=== PATIENT | male | born 1940 | race Caucasian/White ===

== ENCOUNTER 2016-06-07 17:23 | Inpatient (IN) | payer MEDICARE ==
[~2016-06-07] VITALS: Ht 177.8 cm; Wt 89.9 kg
[2016-06-07] MEDS ORDERED: ALBUTEROL 0.083% NEB SOLUTION 2.5 MG/3 ML VIAL INH ONE (18:05)
[2016-06-07] MEDS ORDERED: SODIUM CHLORIDE FLUSH 3 ML SYR IV ONE (18:15)
--- NOTE | 2016-06-07 18:18 | NUR ---
Pt placed in trendelenburg position for BP at this time.
[2016-06-07] MEDS: SODIUM CHLORIDE FLUSH 10 ML SYR IV PRN ×2 (18:24→23:22)
--- NOTE | 2016-06-07 18:24 | NUR ---
pt states that iv site is painfull, checked site and it is okay, turned rate down to 700cc/hr. states feels better now.
--- NOTE | 2016-06-07 18:25 | NUR ---
upon arrival pts sa02 at 77, placed him in sitting position, changed probe to different fingers, pt had a good wave form at set sa02 at 83%. oxi mask placed on pt at 8 L
--- NOTE | 2016-06-07 18:27 | NUR ---
attempted urine sample without success
[2016-06-07 18:32] LABS: MEAN PLATELET VOLUME 11.9 FL (6.0-9.5); PLATELET COUNT 164 10^3uL (150-450); WHITE BLOOD COUNT 23.42 10^3uL (4.0-11.0)
[2016-06-07 18:36] LABS: ALBUMIN 3.9 g/dL (3.4-5.0); ANION GAP 19.1 MEQ/L (3-15); TOTAL PROTEIN 6.7 g/dL (6.4-8.5)
[2016-06-07 18:43] LABS: MEAN CORPUSCULAR HEMOGLOBIN 33.6 PG (26.0-34.0); MEAN CORPUSCULAR VOLUME 99 FL (80-100)
[2016-06-07 18:44] LABS: BAND NEUTROPHILS % 17 % (0-6); LYMPHOCYTES # 1.2 #; MONOCYTES # 1.8 #; MONOCYTES % 8 % (3-11); SEGMENTED NEUTROPHILS % 70 % (51-67); TOTAL CELLS COUNTED 100
[2016-06-07 18:45] LABS: EOSINOPHILS % 0 % (0-4); RBC MORPH NORMAL (NORMAL)
--- NOTE | 2016-06-07 19:35 | NUR ---
Dr. Rojas put pt's head up a little from being flat, and 02 turned down to 5 liters per oxymask
[2016-06-07] MEDS ORDERED: PIPERACILLIN/TAZOBACTAM 4.5 GM in SODIUM CHLORIDE 100 ML IV ONE (20:15)
--- NOTE | 2016-06-07 21:35 | NUR ---
Patient arrives to the floor via cart accompanied by Mónica TREVIZO, supervisor malt house, admitted to room 342 and transferred self. Patient is happy pleasant, talkative. Respirations labored SOB with activity, O2 @ 2 L/nc, titrated to 3 L/nc d/t sats high 80's to 90%. Coughing up dark red to rust colored thick mucoid sputum. Voids in urinal, specimen to lab.
[2016-06-07 21:46] VITALS: BP 108/49
[2016-06-07 21:55] VITALS: BP 108/49
--- NOTE | 2016-06-07 22:35 | NUR ---
Dr. Sunshine in to see patient. Specimen cup provided for sputum. Patient has wallet and phone at bedside. Refuses offer of safe for money. Full set of dentures in mouth, does not wish to remove at this time.
[2016-06-07 22:39] LABS: BILIRUBIN,URINE Negative (Negative); GLUCOSE, URINE (UA) Negative (Negative); LEUKOCYTE ESTERASE ,URINE Negative (Negative); PH,URINE 5.5 (5.0 - 8.0); UROBILINOGEN,URINE 0.2 mg/dL (0.2-1.0)
[2016-06-07 22:42] LABS: CLARITY,URINE Slightly Cloudy; COLOR,URINE Dark Yellow
[2016-06-07] MEDS ORDERED: ACETAMINOPHEN 325 MG TAB (TYLENOL) PO PRN (22:45)
[2016-06-07] MEDS ORDERED: ONDANSETRON 4 MG (ZOFRAN) ORAL DISSOLVE TAB PO PRN (22:45)
[2016-06-07] MEDS ORDERED: CALCIUM CARBONATE CHEWABLE 300 MG (TUMS) TABLET PO PRN (22:45)
[2016-06-07 22:49] LABS: RBC,URINE None Seen /HPF; URINE CENTRIFUGED VOLUME 12 mL
[2016-06-07] MEDS ORDERED: VANCOMYCIN PHARMACY PROTOCOL IV SCH (22:55)
[2016-06-07] MEDS ORDERED: VANCOMYCIN 1,000 MG in SODIUM CHLORIDE 250 ML IV ONE (22:55)
[2016-06-07] MEDS ORDERED: HEPARIN DRIP 25000 UNIT/250 ML 250 ML IV SCH (22:55)
[2016-06-07] MEDS ORDERED: HYDROcodone/APAP 5 MG/325 MG (NORCO) TAB PO PRN (23:00)
[2016-06-07] MEDS ORDERED: ALBUTEROL 0.083% NEB SOLUTION 2.5 MG/3 ML VIAL INH PRN (23:00)
--- NOTE | 2016-06-07 23:00 | NUR ---
New orders received. Heparin drip ordered. Verified orders with Mónica Loja RN, house mother. No loading dose per Dr. Sunshine. Follow protocol. PTT ordered per protocol, infusion begun at 1250 units/hr per protocol and order.
[2016-06-07 23:01] VITALS: BP 85/46
[2016-06-07] MEDS ORDERED: VANCOMYCIN 1000 MG VIAL ONE (23:06)
[2016-06-07] MEDS ORDERED: SODIUM CHLORIDE 250 ML ONE (23:07)
[2016-06-08] VITALS: BP 94/51
--- NOTE | 2016-06-08 00:30 | NUR ---
PTT resulted at [address] Sunshine notified and advised to proceed with Heparin protocol. Followed protocol for bolus with 70 units/kg and increased rate by 4 units/kg. Dose verified with second ICU nurse Bisi TREVIZO
[2016-06-08] MEDS ORDERED: PIPERACILLIN/TAZOBACTAM 3.375 GM (ZOSYN) VIAL IV ONE (05:12)
[2016-06-08] MEDS ORDERED: SODIUM CHLORIDE 100 ML ONE (05:12)
[2016-06-08] MEDS: PIPERACILLIN/TAZOBACTAM 3.375 GM in SODIUM CHLORIDE 100 ML IV SCH ×3 (05:40→22:57)
[2016-06-08] MEDS: PANTOPRAZOLE 40 MG (PROTONIX) TAB PO SCH (06:07)
[2016-06-08 06:42] LABS: BASOPHILS % (AUTO) 0 % (0-2); EOSINOPHILS # (AUTO) 0.1 10^3uL; EOSINOPHILS % (AUTO) 0 % (0-4); LYMPHOCYTES # (AUTO) 1.2 X10^3; MEAN PLATELET VOLUME 11.8 FL (6.0-9.5); MONOCYTES # (AUTO) 1.3 X10^3; MONOCYTES % (AUTO) 10 % (3-11); NEUTROPHILS # (AUTO) 10.8 X10^3; NEUTROPHILS % (AUTO) 80 % (51-67); PLATELET COUNT 135 10^3uL (150-450)
[2016-06-08 06:58] LABS: MEAN CORPUSCULAR HEMOGLOBIN 32.9 PG (26.0-34.0); MEAN CORPUSCULAR VOLUME 100 FL (80-100)
[2016-06-08 07:03] LABS: ALBUMIN 3.1 g/dL (3.4-5.0); ANION GAP 12.8 MEQ/L (3-15); PHOSPHORUS 3.4 mg/dL (2.4-4.9)
--- NOTE | 2016-06-08 07:05 | NUR ---
Spouse stopped in to see patient and visited with nurses. Reports patient has had c/o "hurting everywhere" and his body burning up at night for the past 2-3 weeks prior to admission.
--- NOTE | 2016-06-08 07:15 | NUR ---
supports patient's statement that he has had "internal shingles" for the past 10 months.
[2016-06-08 08:00] VITALS: BP 101/58
[2016-06-08] MEDS: PREGABALIN 75 MG PO SCH ×2 (08:12→20:51)
[2016-06-08] MEDS: FLUTICASONE/SALMETEROL HFA 230/21 MCG (ADVAIR) COMMON CANNISTER INH SCH ×2 (08:12→20:03)
--- NOTE | 2016-06-08 08:30 | NUR ---
Pt. pleasant and alert this am. Pt. denies pain, dyspnea and nausea. Heparin continues to infuse at 15ml/hr, awaiting PTT results that were drawn at 0815. Pt. eating breakfast independently. Denies needs at this time.
--- NOTE | 2016-06-08 08:58 | NUR ---
NUTRITION ASSESSMENT Level 1 Patient: Phillip Ashraf Age/Sex: 75/M Date Screened: 06-08-16 Weight: 204.6#/93 kg Height: 70 inches Primary Diagnosis: sepsis Diet Order: regular Relevant labs: glucose 98 Food allergies: N Nutrition Assessment Criteria Age over 80: N Body Mass Index (BMI) under 19: N Admission Screening Indicates Risk? N Moderate/High Risk Diagnosis: 3 points TPN or PPN: N NPO or clear liquid diet: N Serum Glucose <70 or >180: N Hgb A1c >6.7: N/A Total: 3 points Risk Screen: __ Patient at low nutritional risk based on available data; reevaluate in 5-7 days _X_ Patient at moderate nutritional risk based on available data; reevaluate in 3-5 days __ Patient at high nutritional risk; complete Nutrition Assessment within 48 hours of admission. Comments: Weight has been stable (203# Feb. 2015 at last admission), no GI concerns, stated good appetite on admission. Will reassess as documented above.
--- NOTE | 2016-06-08 09:00 | NUR ---
Heparin drip stopped for PTT of 159.1. Dr. Sommer aware of PTT results.
--- NOTE | 2016-06-08 09:20 | NUR ---
Orders noted for Heparin drip DC and to start Lovenox.
[2016-06-08] MEDS: VANCOMYCIN COMPOUNDED BY PHARMACY IV SCH ×2 (10:00→20:53)
[2016-06-08] MEDS: VANCOMYCIN 750 MG in NORMAL SALINE 150 ML IV SCH ×2 (10:18→20:52)
[2016-06-08] MEDS: ENOXAPARIN 100 MG/1 ML (LOVENOX) SYR SC SCH ×2 (10:20→20:51)
--- NOTE | 2016-06-08 10:34 | NUR ---
Pt. refusing a bath or shower at this time. States he wants to wait until his brings him clean underwear.
--- NOTE | 2016-06-08 10:49 | NUR ---
Pt. taken to nuclear medicine via WC on 3L O2/NC for VQ scan.
--- NOTE | 2016-06-08 11:49 | NUR ---
Pt. back from VQ scan.
--- NOTE | 2016-06-08 11:55 | NUR ---
Pt. reconnected to monitor, SpO2 83% initially. Pt. was transported on 3L/NC. However, pt. quickly increased to 94% once in bed on those 3L. Explained to pt. that to go home he has to be off oxygen, assuming VQ scan is unremarkable. O2 decreased to 2L/NC at this time.
[2016-06-08 12:00] VITALS: BP 113/55
--- NOTE | 2016-06-08 12:36 | NUR ---
MULTIDISCIPLINARY MTG/DR LOPEZ: Pt. is being treated for a PE. Pt. will have a VQ scan today. Pt remains on oxygen but has no complaints at this time. Pt. may move to med/surg today and possibly discharge tomorrow. No discharge needs identified at this time.
[2016-06-08 17:00] VITALS: BP 116/60
--- NOTE | 2016-06-08 18:02 | NUR ---
MED REC COMPLETE--current med list obtained from patient interview.
--- NOTE | 2016-06-08 18:48 | NUR ---
Kirk rests most of the afternoon without complaint and under the covers with eyes closed. respirations even and unlabored, skin is clean and dry. Sp02 above 92 on 3LNC. VSS and WNL. at the bedside. The patient is able to make his needs known.
--- NOTE | 2016-06-08 19:10 | NUR ---
Report received, care assumed. Pt resting in bed. at bedside. No needs at this time.
[2016-06-08 20:00] VITALS: BP 128/72
[2016-06-08] MEDS ORDERED: clonazePAM 0.5 MG (KlonoPIN) TAB PO SCH (21:00)
[2016-06-08 22:00] VITALS: BP 121/59
--- NOTE | 2016-06-08 22:30 | NUR ---
Pt appears to be sleeping. Eyes closed, respirations even et unlabored. No signs discomfort. O2 sat 93% on 3L per NC. No needs at this time. Call light in reach.
[2016-06-09] VITALS (9 sets, daily range): BP systolic 111–167; BP diastolic 60–98
--- NOTE | 2016-06-09 01:00 | NUR ---
Pt has been resting well. No c/o discomfort or SOA. No needs. Call light in reach.
--- NOTE | 2016-06-09 04:00 | NUR ---
Continues to sleep, no signs discomfort or SOA. O2 Sat 96% on 3L per NC. Decreased O2 to 2L per NC, O2 sat 95%. Will continue to monitor. No needs now.
[2016-06-09] MEDS: PIPERACILLIN/TAZOBACTAM 3.375 GM in SODIUM CHLORIDE 100 ML IV SCH ×3 (05:43→22:15)
[2016-06-09] MEDS: PANTOPRAZOLE 40 MG (PROTONIX) TAB PO SCH (06:01)
[2016-06-09 06:18] LABS: BASOPHILS % (AUTO) 0 % (0-2); EOSINOPHILS # (AUTO) 0.2 10^3uL; EOSINOPHILS % (AUTO) 3 % (0-4); LYMPHOCYTES # (AUTO) 0.9 X10^3; MEAN CORPUSCULAR HGB CONC 33.3 g/dL (31.0-37.0); MEAN PLATELET VOLUME 11.9 FL (6.0-9.5); MONOCYTES # (AUTO) 0.9 X10^3; MONOCYTES % (AUTO) 11 % (3-11); NEUTROPHILS # (AUTO) 5.5 X10^3; NEUTROPHILS % (AUTO) 73 % (51-67); PLATELET COUNT 135 10^3uL (150-450); WHITE BLOOD COUNT 7.54 10^3uL (4.0-11.0)
[2016-06-09 06:24] LABS: MEAN CORPUSCULAR HEMOGLOBIN 33.2 PG (26.0-34.0); MEAN CORPUSCULAR VOLUME 100 FL (80-100)
[2016-06-09 06:38] LABS: ALBUMIN 3.1 g/dL (3.4-5.0); ANION GAP 11.4 MEQ/L (3-15); MAGNESIUM* 1.8 mg/dL (1.6-2.3); PHOSPHORUS 3.2 mg/dL (2.4-4.9)
[2016-06-09] MEDS ORDERED: ONDANSETRON 4 MG (ZOFRAN) ORAL DISSOLVE TAB PO PRN (08:30)
[2016-06-09] MEDS ORDERED: SODIUM CHLORIDE FLUSH 10 ML SYR IV PRN (08:30)
[2016-06-09] MEDS: ENOXAPARIN 40 MG/0.4 ML (LOVENOX) SYR SC SCH (08:41)
[2016-06-09] MEDS: PREGABALIN 75 MG PO SCH ×2 (08:41→20:31)
[2016-06-09] MEDS ORDERED: ALBUTEROL 0.083% NEB SOLUTION 2.5 MG/3 ML VIAL INH PRN (08:52)
[2016-06-09] MEDS ORDERED: VANCOMYCIN IV SCH ×2 (09:00)
[2016-06-09] MEDS ORDERED: NON-FORMULARY MEDICATION 1 EA EA (Fluticasone/Salmeterol (Advair 250-50 Diskus) 1 PUFF) IH SCH (09:00)
[2016-06-09] MEDS ORDERED: ENOXAPARIN 40 MG/0.4 ML (LOVENOX) SYR SC SCH (09:00)
[2016-06-09] MEDS: FLUTICASONE/SALMETEROL HFA 115/21 MCG (ADVAIR) COMMON CANNISTER INH SCH ×2 (09:00→20:50)
[2016-06-09] MEDS: VANCOMYCIN COMPOUNDED BY PHARMACY IV SCH ×2 (09:00→20:31)
[2016-06-09] MEDS ORDERED: FLUTICASONE/SALMETEROL HFA 230/21 MCG (ADVAIR) COMMON CANNISTER INH SCH (09:00)
[2016-06-09] MEDS ORDERED: VANCOMYCIN PHARMACY PROTOCOL IV SCH ×3 (09:00→22:55)
[2016-06-09] MEDS ORDERED: NORMAL SALINE IV SCH ×2 (09:00)
[2016-06-09] MEDS ORDERED: NON-FORMULARY MEDICATION 1 EA EA (Loratadine 10 MG) PO SCH (09:00)
[2016-06-09] MEDS: LORATADINE (CLARITIN) 10 MG TAB PO SCH (09:22)
[2016-06-09] MEDS: ALLOPURINOL 300 MG (ZYLOPRIM) TAB PO SCH (09:22)
[2016-06-09] MEDS ORDERED: HYDROcodone/APAP 5 MG/325 MG (NORCO) TAB PO PRN ×2 (09:45→10:00)
[2016-06-09] MEDS: ASPIRIN BUFFERED PO SCH (10:33)
--- NOTE | 2016-06-09 11:04 | NUR ---
Pt. alert and oriented this morning, pleasant. He denies pain, but when asked about the discomfort in his feet, he states he always has pain in his feet. He rates the pain in his feet 9/10, states that is his normal and is tolerable. He normally takes ASA in the morning and Tylenol in the evening for this pain. Pt. continues to require O2 to maintain SpO2 above 90%. Initially this am he was on 3L/NC. SpO2 was 95-96% at 0745 and O2 was titrated down to 2L. Pt. had difficulty maintaining SpO2 on 2L, SpO2 maintained at 86-89%. O2 increased back to 3L/NC. Order received from Dr. Sommer at 0930 to continue pts. home [place] and ASA. Encouraged pt. to use IS every hour while awake. Pts. here at this time, she is aware of plan of care as well. Pt. to be transferred to floor today.
--- NOTE | 2016-06-09 11:34 | NUR ---
Report given to Temitope TREVIZO, to assume care of pt. upon transfer to [facility].
--- NOTE | 2016-06-09 11:55 | NUR ---
Pt. transferred to [facility] at this time via WC accompanied by son and RN. Belongings sent with pt.
--- NOTE | 2016-06-09 11:55 | NUR ---
Pt transferred to [facility] from ICU at this time. States he feels "fantastic". Skin warm, dry, intact. Resprs nonlabored, even on RA. States "I just want to go home!". 3L O2 per NC. Son at bedside.
--- NOTE | 2016-06-09 13:42 | NUR ---
Vancomycin Dosing: Pharmacy Managed S: Sepsis: Empiric Antibiotic therapy with Pip/Tazo and Vancomycin. Cultures pending. O: 75y/o M, wt = 95.4 kg, SCr= 1.26 CrCl= 47 ml/min A/P: Trough returned at 10.8 with VAnco 750mg q12h. Will increase to 1250mg q12h with a predicted trough of 18.05.
[2016-06-09] MEDS ORDERED: CALCIUM CARBONATE CHEWABLE 300 MG (TUMS) TABLET PO PRN (14:45)
--- NOTE | 2016-06-09 16:26 | NUR ---
Upon finishing in the shower, this nurse was called into shower as pt's IV was profusely bleeding. Bleeding controlled, cleaned up, IV DC'd with catheter tip intact, pressure held for approx 4 mins. 4x4s and coban applied. Pt denies other needs.
--- NOTE | 2016-06-09 17:42 | NUR ---
Took pt off O2 this afternoon per Dr Sommer to monitor sats on RA as pt was quite eager to go home. Pt ambulated 2 laps with staff on RA. Sats anywhere from 76-93%. Pt returned to room and continued to monitor sats. Pt's sats got as low as 74% at one point, but mainly stayed between 84-93%. 2L NC replaced at this time. Kemal aware, new orders entered. Pt discouraged that he cannot go home. States "I wonder if I just need to get an oxygen tank at home and wear this around at home". Informed pt that may be something he needs to discuss with the doctor. Pt denies needs at this time. Very pleasant, cooperative.
--- NOTE | 2016-06-09 18:30 | NUR ---
O2 sats between 85% and 92%. RT notified. Increased to 3L NC. Will try oxy mask once patient goes to bed. Denies needs.
--- NOTE | 2016-06-09 19:35 | NUR ---
Pt is sitting up in bed watching tv, alert and oriented x 4, Resp are even and nonlabored, LCTAB, request to have Oxymax put on at this time. This RN switched pt to Oxymax at 3LPM. HRRR, BS are active x 4 quadrants. SL is patent, currently infusing Zosyn, no redness, swelling, or s/s of infection noted at this time. Pt continues to pick at tape on IV, thinks it needs more tape to keep it in place. This RN applies new tape to IV, educated pt that he will have to keep his arm straight so he doesn't kink of the IV, as his IV is in his RAC. Pt verbalizes understanding at this time. Denies pain or discomfort at this time. Call light is in reach, will continue to monitor.
[2016-06-09] MEDS: SIMvastatin 20 MG (ZOCOR) TAB PO SCH (20:31)
[2016-06-09] MEDS: VANCOMYCIN 1250 MG in SODIUM CHLORIDE 250 ML IV SCH (20:31)
[2016-06-09] MEDS: clonazePAM 0.5 MG (KlonoPIN) TAB PO SCH (20:31)
[2016-06-09] MEDS: ACETAMINOPHEN 325 MG TAB (TYLENOL) PO PRN (20:33)
[2016-06-10] VITALS (7 sets, daily range): BP systolic 123–159; BP diastolic 58–111
--- NOTE | 2016-06-10 04:39 | NUR ---
Pt has been resting in bed most of shift, did receive Tylenol 650mg PO for discomfort at 2029. Has denied further pain or discomfort during this shift. Call light is in reach, will continue to monitor.
[2016-06-10] MEDS: PIPERACILLIN/TAZOBACTAM 3.375 GM in SODIUM CHLORIDE 100 ML IV SCH ×3 (06:15→22:04)
[2016-06-10] MEDS: PANTOPRAZOLE 40 MG (PROTONIX) TAB PO SCH (06:39)
--- NOTE | 2016-06-10 07:30 | NUR ---
Patient resting in bed upon shift assessment. Alert and oriented X3. Denies pain, SOA, nausea, or other distress. Respirations even and non-labored on 2L of 02 per nc. Continuous pulse ox intact and reflecting oxygen saturation of 93%. Lung sounds diminished throughout. HR RRR. No edema noted to BLE. Updated on plan of care for shift including titrating oxygen and antibiotic therapy. Expresses strong desire to go home. Positive reassurance provided. Call light in reach.
[2016-06-10] MEDS: FLUTICASONE/SALMETEROL HFA 115/21 MCG (ADVAIR) COMMON CANNISTER INH SCH ×2 (07:52→19:17)
[2016-06-10] MEDS: ASPIRIN BUFFERED PO SCH (08:30)
[2016-06-10] MEDS: ALLOPURINOL 300 MG (ZYLOPRIM) TAB PO SCH (08:30)
[2016-06-10] MEDS: LORATADINE (CLARITIN) 10 MG TAB PO SCH (08:30)
[2016-06-10] MEDS: ENOXAPARIN 40 MG/0.4 ML (LOVENOX) SYR SC SCH (08:30)
[2016-06-10] MEDS: PREGABALIN 75 MG PO SCH ×2 (08:30→21:00)
[2016-06-10] MEDS: VANCOMYCIN COMPOUNDED BY PHARMACY IV SCH ×2 (08:31→21:00)
[2016-06-10] MEDS ORDERED: NS FLUSH 3 ML PRN IV (08:40)
[2016-06-10] MEDS: NS FLUSH 3 ML DAILY IV SCH (09:00)
[2016-06-10] MEDS ORDERED: ALBUTEROL 0.083% NEB SOLUTION 2.5 MG/3 ML VIAL INH PRN (09:30)
[2016-06-10] MEDS: VANCOMYCIN 1250 MG in SODIUM CHLORIDE 250 ML IV SCH (09:57)
[2016-06-10] MEDS ORDERED: ALBUTEROL/IPRATROPIUM 3MG-0.5MG/3ML (DUONEB) NEB VIAL INH ONE (10:43)
[2016-06-10] MEDS: ALBUTEROL/IPRATROPIUM 3MG-0.5MG/3ML (DUONEB) NEB VIAL INH SCH ×2 (10:44→19:17)
[2016-06-10] MEDS: ACETAMINOPHEN 325 MG TAB (TYLENOL) PO PRN (16:21)
[2016-06-10] MEDS: clonazePAM 0.5 MG (KlonoPIN) TAB PO SCH (21:00)
[2016-06-10] MEDS: SIMvastatin 20 MG (ZOCOR) TAB PO SCH (21:00)
[2016-06-11] VITALS (8 sets, daily range): BP systolic 117–161; BP diastolic 60–109
--- NOTE | 2016-06-11 05:07 | NUR ---
Pt has been resting in bed most of shift, did receive Tylenol 650mg PO for discomfort at 2054. Has denied further pain or discomfort during this shift. Call light is in reach, will continue to monitor.
[2016-06-11] MEDS: PIPERACILLIN/TAZOBACTAM 3.375 GM in SODIUM CHLORIDE 100 ML IV SCH (06:06)
[2016-06-11] MEDS: PANTOPRAZOLE 40 MG (PROTONIX) TAB PO SCH (07:07)
[2016-06-11] MEDS: FLUTICASONE/SALMETEROL HFA 115/21 MCG (ADVAIR) COMMON CANNISTER INH SCH ×2 (07:46→19:41)
[2016-06-11] MEDS: ALBUTEROL/IPRATROPIUM 3MG-0.5MG/3ML (DUONEB) NEB VIAL INH SCH ×2 (07:47→19:40)
[2016-06-11] MEDS: ASPIRIN BUFFERED PO SCH (09:00)
[2016-06-11] MEDS: PREGABALIN 75 MG PO SCH ×2 (09:00→20:45)
[2016-06-11] MEDS: ALLOPURINOL 300 MG (ZYLOPRIM) TAB PO SCH (09:00)
[2016-06-11] MEDS: NS FLUSH 3 ML DAILY IV SCH (09:00)
[2016-06-11] MEDS: VANCOMYCIN COMPOUNDED BY PHARMACY IV SCH (09:00)
[2016-06-11] MEDS: LORATADINE (CLARITIN) 10 MG TAB PO SCH (09:00)
[2016-06-11] MEDS: ENOXAPARIN 40 MG/0.4 ML (LOVENOX) SYR SC SCH (09:01)
--- NOTE | 2016-06-11 10:44 | NUR ---
Complains of sore right hand from previous IV that infiltrated. Warm washcloth given for discomfort.
[2016-06-11] MEDS: predniSONE 20 MG (DELTASONE) TABLET PO SCH (14:02)
[2016-06-11] MEDS: ACETAMINOPHEN 325 MG TAB (TYLENOL) PO PRN (16:36)
--- NOTE | 2016-06-11 16:38 | NUR ---
Complaining of right foot pain after amb. and request Tylenol. Med given.
--- NOTE | 2016-06-11 19:30 | NUR ---
Pt seen and assessed. Updated on plan of care for shift. Pt requests to take a walk later. Denies pain. Cont on 2L oxygen per nc. No needs at this time.
--- NOTE | 2016-06-11 19:45 | NUR ---
Pt found sitting on the side of his bed, SPO2 92% on 2 l/min NC, HR 118, RR 18 and non labored. 2p Advair 115/21 given via Spacer and Duoneb given via SVN. BS clear before and after Tx. Is is being done on his own.
[2016-06-11] MEDS: SIMvastatin 20 MG (ZOCOR) TAB PO SCH (20:45)
[2016-06-11] MEDS: AMOXICILLIN/CLAVULANATE 875MG-125MG (AUGMENTIN) TABLET PO SCH (20:45)
[2016-06-11] MEDS: clonazePAM 0.5 MG (KlonoPIN) TAB PO SCH (20:45)
[2016-06-12 04:31] VITALS: BP 126/88
[2016-06-12] MEDS: PANTOPRAZOLE 40 MG (PROTONIX) TAB PO SCH (06:06)
--- NOTE | 2016-06-12 06:08 | NUR ---
Pt rests intermittently throughout the night. C/o itching d/t "internal shingles." Denies pain. Cont on 2L oxygen per nc. SL intact. No needs at this time.
--- NOTE | 2016-06-12 07:20 | NUR ---
Patient awake in bed upon shift assessment. Alert and oriented X3. Denies pain, SOA, or other distress. Respirations even and non-labored on 2L of 02 per nc. Lung sounds diminished throughout. HR RRR. No edema noted to BLE. Updated on plan of care for shift. Call light in reach.
[2016-06-12 08:20] VITALS: BP 164/86
[2016-06-12 08:22] VITALS: BP_SYST 108; BP_SYST 151; BP_SYST 164; BP_DIAS 102; BP_DIAS 74; BP_DIAS 86
[2016-06-12] MEDS: FLUTICASONE/SALMETEROL HFA 115/21 MCG (ADVAIR) COMMON CANNISTER INH SCH (08:37)
[2016-06-12] MEDS: ALBUTEROL/IPRATROPIUM 3MG-0.5MG/3ML (DUONEB) NEB VIAL INH SCH (08:37)
[2016-06-12] MEDS: AMOXICILLIN/CLAVULANATE 875MG-125MG (AUGMENTIN) TABLET PO SCH (08:51)
[2016-06-12] MEDS: predniSONE 20 MG (DELTASONE) TABLET PO SCH (08:52)
[2016-06-12] MEDS: ASPIRIN BUFFERED PO SCH (08:52)
[2016-06-12] MEDS: LORATADINE (CLARITIN) 10 MG TAB PO SCH (08:52)
[2016-06-12] MEDS: PREGABALIN 75 MG PO SCH (08:52)
[2016-06-12] MEDS: ENOXAPARIN 40 MG/0.4 ML (LOVENOX) SYR SC SCH (08:52)
[2016-06-12] MEDS: ALLOPURINOL 300 MG (ZYLOPRIM) TAB PO SCH (08:52)
[2016-06-12] MEDS: NS FLUSH 3 ML DAILY IV SCH (08:53)
--- NOTE | 2016-06-12 10:51 | NUR ---
Discharge order received. IV discontinued with catheter intact. No redness or swelling noted at insertion site. Instructions provided with verbal and written understanding expressed. Health Equip here with ordered portable oxygen tank.
--- NOTE | 2016-06-12 11:08 | NUR ---
Patient discharged via wheelchair to private vehicle accompanied by TRIM MACHINE OPERATOR and . 2L of 02 intact per nc. No further needs.
--- NOTE | 2016-06-12 11:18 | NUR ---
Reviewed discharge medications with patient. Provided patient handout information for new medications. No additional questions or concerns. Patient verbalized understanding of medications.
== END 2016-06-12 11:20 | disposition home or self-care (01) | DRG 189 ==
LOC: ED 17:25 → ICU 21:13 → MED/SURG 06-09 12:00
PROVIDERS: ADMIT Family Medicine; ATTEND Family Medicine
DX: J96.01 Acute respiratory failure with hypoxia (principal); J18.9 Pneumonia, unspecified organism; N17.9 Acute kidney failure, unspecified; Z66 Do not resuscitate; J44.0 Chronic obstructive pulmonary disease with (acute) lower respiratory infection; J44.1 Chronic obstructive pulmonary disease with (acute) exacerbation; I95.9 Hypotension, unspecified; E87.5 Hyperkalemia; I10 Essential (primary) hypertension; M10.9 Gout, unspecified; G89.29 Other chronic pain; Z87.891 Personal history of nicotine dependence
CPT/HCPCS: 36415; 71010; 78582; 80053; 80069; 80202; 81003; 81015; 82550; 82553; 82803; 83605; 83735; 83880; 84443; 84484; 85025; 85379; 85610; 85730; 86140; 87040; 87205; 93005; 93010; 94620; 94640; 94760; 94762; 96361; 96365; 99284; 99285

== ENCOUNTER → 2016-06-26 | Outpatient (CLI) | payer MEDICARE | LOC: RAD 08:15 | PROVIDERS: ATTEND Internal Medicine | DX: J18.9 Pneumonia, unspecified organism (principal); I51.7 Cardiomegaly; J44.9 Chronic obstructive pulmonary disease, unspecified | CPT/HCPCS: 71020 ==

== ENCOUNTER 2016-07-15 09:50 | Inpatient (IN) | payer MEDICARE ==
[~2016-07-15] VITALS: Ht 175.3 cm; Wt 96.4 kg
[2016-07-15] VITALS (9 sets, daily range): BP systolic 81–119; BP diastolic 45–71
[2016-07-15] MEDS ORDERED: ONDANSETRON 2 MG/ML (Z0FRAN) 2 ML VIAL IV ONE (10:20)
[2016-07-15] MEDS ORDERED: SODIUM CHLORIDE FLUSH 3 ML SYR IV ONE ×2 (10:20→10:25)
[2016-07-15] MEDS ORDERED: SODIUM CHLORIDE FLUSH 10 ML SYR IV PRN ×2 (10:20→10:25)
[2016-07-15] MEDS ORDERED: NS IV 500 ML 500 ML IV SCH ×4 (10:20→11:30)
[2016-07-15] MEDS ORDERED: ALBUTEROL/IPRATROPIUM 3MG-0.5MG/3ML (DUONEB) NEB VIAL INH ONE (10:30)
[2016-07-15 10:38] LABS: MEAN CORPUSCULAR HGB CONC 34.2 g/dL (31.0-37.0); MEAN CORPUSCULAR VOLUME 96 FL (80-100); PLATELET COUNT 158 10^3uL (150-450); WHITE BLOOD COUNT 15.19 10^3uL (4.0-11.0)
[2016-07-15] MEDS ORDERED: VANCOMYCIN 1,000 MG in SODIUM CHLORIDE 250 ML IV ONE (10:40)
[2016-07-15 10:45] LABS: MEAN CORPUSCULAR HEMOGLOBIN 32.7 PG (26.0-34.0)
[2016-07-15 10:51] LABS: ALBUMIN 3.8 g/dL (3.4-5.0); ANION GAP 14.7 MEQ/L (3-15); CALCULATED IONIZED CALCIUM 4.3 mg/dL (3.8-4.6); TOTAL PROTEIN 6.5 g/dL (6.4-8.5)
[2016-07-15 10:53] LABS: BAND NEUTROPHILS % 17 % (0-6); EOSINOPHILS % 0 % (0-4); LYMPHOCYTES # 0.5 #; MONOCYTES # 0.5 #; MONOCYTES % 3 % (3-11); RBC MORPH NORMAL (NORMAL); SEGMENTED NEUTROPHILS % 76 % (51-67); TOTAL CELLS COUNTED 100
[2016-07-15] MEDS ORDERED: fentaNYL 100 MCG/2 ML VIAL IV ONE (11:05)
[2016-07-15 11:08] LABS: BILIRUBIN,URINE Negative (Negative); CLARITY,URINE Clear; COLOR,URINE Yellow; GLUCOSE, URINE (UA) Negative (Negative); LEUKOCYTE ESTERASE ,URINE Negative (Negative); PH,URINE 5.5 (5.0 - 8.0); UROBILINOGEN,URINE 0.2 mg/dL (0.2-1.0)
[2016-07-15 11:13] LABS: AMORPHOUS SEDIMENT,UR 1+ /HPF; RBC,URINE 0-2 /HPF; URINE CENTRIFUGED VOLUME <10mL Unspun
[2016-07-15] MEDS ORDERED: DOPamine DRIP 250 ML IV PRN (11:20)
[2016-07-15] MEDS ORDERED: ALBUTEROL 0.083% NEB SOLUTION 2.5 MG/3 ML VIAL INH PRN (12:40)
[2016-07-15] MEDS ORDERED: ONDANSETRON 2 MG/ML (Z0FRAN) 2 ML VIAL IV PRN (12:40)
[2016-07-15] MEDS ORDERED: MAG HYDROX/AL HYDROX/SIMETH 200-200-20/5 ML (MAG-AL PLUS) 30 ML UDC PO PRN (12:40)
[2016-07-15] MEDS ORDERED: CALCIUM CARBONATE CHEWABLE 300 MG (TUMS) TABLET PO PRN (12:40)
[2016-07-15] MEDS ORDERED: MAGNESIUM HYDROXIDE 80MG/ML (MILK OF MAGNESIA) 30 ML UDC PO PRN (12:40)
[2016-07-15] MEDS ORDERED: ONDANSETRON 4 MG (ZOFRAN) ORAL DISSOLVE TAB PO PRN (12:40)
[2016-07-15] MEDS ORDERED: VANCOMYCIN PHARMACY PROTOCOL IV SCH ×2 (12:40)
[2016-07-15] MEDS ORDERED: POLYETHYLENE GLYCOL 17 GM (MIRALAX) PACKET PO PRN (12:40)
[2016-07-15] MEDS ORDERED: LEVOFLOXACIN 750 MG/150 ML IV 150 ML IV SCH (12:40)
[2016-07-15] MEDS ORDERED: DOCUSATE SODIUM 100 MG (COLACE) CAP PO PRN (12:40)
[2016-07-15] MEDS ORDERED: PROMETHAZINE HCL INJ 12.5 MG in SODIUM CHLORIDE 25 ML IV PRN (12:40)
[2016-07-15] MEDS: ACETAMINOPHEN 325 MG TAB (TYLENOL) PO PRN (13:28)
[2016-07-15] MEDS: PIPERACILLIN/TAZOBACTAM 3.375 GM in SODIUM CHLORIDE 100 ML IV SCH ×2 (14:38→21:04)
[2016-07-15] MEDS ORDERED: LORATADINE (CLARITIN) 10 MG TAB PO PRN (15:10)
[2016-07-15] MEDS: ALBUTEROL/IPRATROPIUM 3MG-0.5MG/3ML (DUONEB) NEB VIAL INH SCH ×2 (16:57→22:54)
[2016-07-15] MEDS: HYDROcodone/APAP 5 MG/325 MG (NORCO) TAB PO PRN (17:58)
[2016-07-15] MEDS ORDERED: BUDESONIDE NEBS 0.5 MG/2ML (PULMICORT) AMP INH SCH (21:00)
[2016-07-15] MEDS: PREGABALIN 75 MG PO SCH (21:04)
[2016-07-15] MEDS: guaiFENesin ER 600 MG (MUCINEX) TAB PO SCH (21:04)
[2016-07-15] MEDS: methylPREDNISolone 125 MG (Solu-MEDROL) VIAL IV SCH (21:04)
[2016-07-15] MEDS: FLUTICASONE/SALMETEROL HFA 115/21 MCG (ADVAIR) COMMON CANNISTER INH SCH (22:54)
[2016-07-16] VITALS (7 sets, daily range): BP systolic 94–145; BP diastolic 58–89
[2016-07-16] MEDS: NS FLUSH 10 ML PRN IV ×2 (01:56→08:23)
[2016-07-16] MEDS: HYDROcodone/APAP 5 MG/325 MG (NORCO) TAB PO PRN ×2 (02:01→08:23)
[2016-07-16] MEDS: ALBUTEROL/IPRATROPIUM 3MG-0.5MG/3ML (DUONEB) NEB VIAL INH SCH ×4 (05:41→22:24)
[2016-07-16] MEDS: FLUTICASONE/SALMETEROL HFA 115/21 MCG (ADVAIR) COMMON CANNISTER INH SCH ×2 (05:42→22:24)
[2016-07-16 06:02] LABS: MEAN CORPUSCULAR HGB CONC 33.2 g/dL (31.0-37.0); MEAN PLATELET VOLUME 11.2 FL (6.0-9.5); PLATELET COUNT 93 10^3uL (150-450); WHITE BLOOD COUNT 17.32 10^3uL (4.0-11.0)
[2016-07-16 06:06] LABS: MEAN CORPUSCULAR HEMOGLOBIN 32.7 PG (26.0-34.0); MEAN CORPUSCULAR VOLUME 99 FL (80-100)
[2016-07-16] MEDS: PIPERACILLIN/TAZOBACTAM 3.375 GM in SODIUM CHLORIDE 100 ML IV SCH ×3 (06:11→22:36)
[2016-07-16] MEDS: PANTOPRAZOLE 40 MG (PROTONIX) TAB PO SCH (06:11)
[2016-07-16] MEDS: NS FLUSH 3 ML PRN IV ×2 (06:14→13:34)
[2016-07-16 06:31] LABS: EOSINOPHILS % 0 % (0-4); LYMPHOCYTES # 0.4 #; MONOCYTES # 0.2 #; MONOCYTES % 1 % (3-11); SEGMENTED NEUTROPHILS % 79 % (51-67)
[2016-07-16 06:32] LABS: BAND NEUTROPHILS % 17 % (0-6); RBC MORPH NORMAL (NORMAL); TOTAL CELLS COUNTED 100
[2016-07-16 06:49] LABS: ALBUMIN 3.1 g/dL (3.4-5.0); ANION GAP 14.3 MEQ/L (3-15); PHOSPHORUS 3.7 mg/dL (2.4-4.9)
[2016-07-16] MEDS: methylPREDNISolone 125 MG (Solu-MEDROL) VIAL IV SCH ×2 (08:22→20:14)
[2016-07-16] MEDS: ENOXAPARIN 30 MG/0.3 ML (LOVENOX) SYR SC SCH (08:22)
[2016-07-16] MEDS: guaiFENesin ER 600 MG (MUCINEX) TAB PO SCH ×2 (08:23→20:15)
[2016-07-16] MEDS: ACIDOPHILUS/LACTOBACILLUS SPOROGENES 1 TABLET PO SCH (08:23)
[2016-07-16] MEDS: NS FLUSH 3 ML DAILY IV SCH (08:24)
[2016-07-16] MEDS: PREGABALIN 75 MG PO SCH ×2 (08:24→20:15)
[2016-07-16] MEDS: ALLOPURINOL 300 MG (ZYLOPRIM) TAB PO SCH (08:24)
[2016-07-16] MEDS: hydrOXYzine 25 MG (ATARAX) TABLET PO PRN ×2 (08:45→20:16)
[2016-07-16] MEDS: ACETAMINOPHEN 325 MG TAB (TYLENOL) PO PRN (10:55)
[2016-07-16] MEDS ORDERED: VANCOMYCIN 1,000 MG in SODIUM CHLORIDE 250 ML IV SCH (11:00)
[2016-07-16] MEDS ORDERED: VANCOMYCIN COMPOUNDED BY PHARMACY IV SCH (11:00)
[2016-07-16] MEDS ORDERED: VANCOMYCIN 1500 MG in NS IV 300 ML IV SCH ×3 (11:00)
[2016-07-17] VITALS (7 sets, daily range): BP systolic 135–203; BP diastolic 75–107
[2016-07-17] MEDS: ALBUTEROL/IPRATROPIUM 3MG-0.5MG/3ML (DUONEB) NEB VIAL INH SCH ×4 (05:52→22:57)
[2016-07-17] MEDS: PIPERACILLIN/TAZOBACTAM 3.375 GM in SODIUM CHLORIDE 100 ML IV SCH ×3 (06:19→22:27)
[2016-07-17] MEDS: PANTOPRAZOLE 40 MG (PROTONIX) TAB PO SCH (06:20)
[2016-07-17 06:23] LABS: MEAN CORPUSCULAR HGB CONC 34.4 g/dL (31.0-37.0); MEAN CORPUSCULAR VOLUME 97 FL (80-100); PLATELET COUNT 100 10^3uL (150-450); WHITE BLOOD COUNT 14.62 10^3uL (4.0-11.0)
[2016-07-17] MEDS: HYDROcodone/APAP 5 MG/325 MG (NORCO) TAB PO PRN ×3 (06:39→17:50)
[2016-07-17 06:46] LABS: MEAN CORPUSCULAR HEMOGLOBIN 33.3 PG (26.0-34.0)
[2016-07-17 06:47] LABS: LYMPHOCYTES # 0.3 #; MONOCYTES # 0.4 #; MONOCYTES % 3 % (3-11)
[2016-07-17 06:48] LABS: ALBUMIN 3.2 g/dL (3.4-5.0); ANION GAP 13.9 MEQ/L (3-15); EOSINOPHILS % 0 % (0-4); MAGNESIUM* 1.8 mg/dL (1.6-2.3); PHOSPHORUS 3.2 mg/dL (2.4-4.9)
[2016-07-17 06:49] LABS: BAND NEUTROPHILS % 5 % (0-6); SEGMENTED NEUTROPHILS % 90 % (51-67); TOTAL CELLS COUNTED 100
[2016-07-17 07:11] LABS: RBC MORPH NORMAL (NORMAL)
[2016-07-17] MEDS: ACIDOPHILUS/LACTOBACILLUS SPOROGENES 1 TABLET PO SCH (08:15)
[2016-07-17] MEDS: PREGABALIN 75 MG PO SCH ×2 (08:15→20:23)
[2016-07-17] MEDS: guaiFENesin ER 600 MG (MUCINEX) TAB PO SCH ×2 (08:15→20:22)
[2016-07-17] MEDS: ENOXAPARIN 30 MG/0.3 ML (LOVENOX) SYR SC SCH (08:16)
[2016-07-17] MEDS: NS FLUSH 3 ML DAILY IV SCH (08:16)
[2016-07-17] MEDS: methylPREDNISolone 125 MG (Solu-MEDROL) VIAL IV SCH (08:17)
[2016-07-17] MEDS: ALLOPURINOL 300 MG (ZYLOPRIM) TAB PO SCH (08:22)
[2016-07-17] MEDS ORDERED: PROMETHAZINE HCL INJ 12.5 MG in SODIUM CHLORIDE 25 ML IV PRN (10:06)
[2016-07-17] MEDS ORDERED: ACETAMINOPHEN 325 MG TAB (TYLENOL) PO PRN (10:07)
[2016-07-17] MEDS ORDERED: ALBUTEROL 0.083% NEB SOLUTION 2.5 MG/3 ML VIAL INH PRN (10:07)
[2016-07-17] MEDS ORDERED: DOCUSATE SODIUM 100 MG (COLACE) CAP PO PRN (10:08)
[2016-07-17] MEDS ORDERED: CALCIUM CARBONATE CHEWABLE 300 MG (TUMS) TABLET PO PRN (10:08)
[2016-07-17] MEDS ORDERED: MAGNESIUM HYDROXIDE 80MG/ML (MILK OF MAGNESIA) 30 ML UDC PO PRN (10:09)
[2016-07-17] MEDS ORDERED: LORATADINE (CLARITIN) 10 MG TAB PO PRN (10:09)
[2016-07-17] MEDS ORDERED: ONDANSETRON 4 MG (ZOFRAN) ORAL DISSOLVE TAB PO PRN (10:10)
[2016-07-17] MEDS ORDERED: MAG HYDROX/AL HYDROX/SIMETH 200-200-20/5 ML (MAG-AL PLUS) 30 ML UDC PO PRN (10:10)
[2016-07-17] MEDS ORDERED: POLYETHYLENE GLYCOL 17 GM (MIRALAX) PACKET PO PRN (10:10)
[2016-07-17] MEDS ORDERED: VANCOMYCIN PHARMACY PROTOCOL IV SCH (10:11)
[2016-07-17] MEDS ORDERED: SODIUM CHLORIDE FLUSH 3 ML SYR IV PRN (10:11)
[2016-07-17] MEDS: COMPOUNDED BY PHARMACY IV SCH (10:43)
[2016-07-17] MEDS: VANCOMYCIN 1,500 MG, VANCOMYCIN PHARMACY PROTOCOL 1 EACH in SODIUM CHLORIDE 250 ML, SOD... IV SCH (10:43)
[2016-07-17] MEDS: SODIUM CHLORIDE 100 ML IV PRN ×2 (10:51→15:25)
[2016-07-17] MEDS: FLUTICASONE/SALMETEROL HFA 115/21 MCG (ADVAIR) COMMON CANNISTER INH SCH ×2 (10:57→22:59)
[2016-07-17] MEDS ORDERED: LEVOFLOXACIN 750 MG/150 ML IV 150 ML IV SCH (13:00)
[2016-07-17] MEDS: hydrOXYzine 25 MG (ATARAX) TABLET PO PRN ×2 (16:33→22:35)
[2016-07-17] MEDS: hydrALAZINE 20 MG/ML (APRESOLINE) 1 ML VIAL IV PRN (17:37)
[2016-07-17] MEDS: amLODIPine 2.5MG (NORVASC) TAB PO SCH (17:37)
[2016-07-17] MEDS: meTOproloL SUCCINATE 50 MG (TOPROL XL) TAB PO SCH (17:37)
[2016-07-17] MEDS: SODIUM CHLORIDE FLUSH 10 ML SYR IV PRN ×2 (17:41→22:27)
[2016-07-17] MEDS: MAGNESIUM 1 GM/100 ML IVPB 100 ML IV SCH ×2 (17:46→19:02)
[2016-07-17] MEDS: LORazepam 2 MG/ML (ATIVAN) 1 ML VIAL IV PRN (17:51)
[2016-07-17] MEDS ORDERED: methylPREDNISolone 125 MG (Solu-MEDROL) VIAL IV SCH (21:00)
[2016-07-18 04:00] VITALS: BP 159/88
[2016-07-18] MEDS: ALBUTEROL/IPRATROPIUM 3MG-0.5MG/3ML (DUONEB) NEB VIAL INH SCH ×4 (05:09→22:27)
[2016-07-18] MEDS: PIPERACILLIN/TAZOBACTAM 3.375 GM in SODIUM CHLORIDE 100 ML IV SCH (05:47)
[2016-07-18] MEDS: HYDROcodone/APAP 5 MG/325 MG (NORCO) TAB PO PRN ×3 (05:48→20:26)
[2016-07-18] MEDS: PANTOPRAZOLE 40 MG (PROTONIX) TAB PO SCH (05:48)
[2016-07-18] MEDS: hydrOXYzine 25 MG (ATARAX) TABLET PO PRN (05:48)
[2016-07-18] MEDS ORDERED: PANTOPRAZOLE 40 MG (PROTONIX) TAB PO ONE (05:54)
[2016-07-18 08:00] VITALS: BP 153/94
[2016-07-18] MEDS: ACIDOPHILUS/LACTOBACILLUS SPOROGENES 1 TABLET PO SCH (08:57)
[2016-07-18] MEDS: predniSONE 20 MG (DELTASONE) TABLET PO SCH (08:58)
[2016-07-18] MEDS: PREGABALIN 75 MG PO SCH ×2 (08:59→20:26)
[2016-07-18] MEDS: amLODIPine 2.5MG (NORVASC) TAB PO SCH (08:59)
[2016-07-18] MEDS: SODIUM CHLORIDE FLUSH 3 ML SYR IV SCH (08:59)
[2016-07-18] MEDS: guaiFENesin ER 600 MG (MUCINEX) TAB PO SCH ×2 (08:59→20:25)
[2016-07-18] MEDS: ALLOPURINOL 300 MG (ZYLOPRIM) TAB PO SCH (09:00)
[2016-07-18] MEDS: ENOXAPARIN 30 MG/0.3 ML (LOVENOX) SYR SC SCH (09:05)
[2016-07-18 10:44] LABS: MEAN CORPUSCULAR HGB CONC 34.2 g/dL (31.0-37.0); MEAN CORPUSCULAR VOLUME 97 FL (80-100); MEAN PLATELET VOLUME 11.3 FL (6.0-9.5); PLATELET COUNT 119 10^3uL (150-450)
[2016-07-18 10:53] LABS: ALBUMIN 3.1 g/dL (3.4-5.0); ANION GAP 14.6 MEQ/L (3-15); PHOSPHORUS 2.8 mg/dL (2.4-4.9)
[2016-07-18 10:54] LABS: MEAN CORPUSCULAR HEMOGLOBIN 33.2 PG (26.0-34.0)
[2016-07-18 10:58] LABS: VANCOMYCIN,TROUGH 9.4 ug/mL (10.0-15.0)
[2016-07-18] MEDS: COMPOUNDED BY PHARMACY IV SCH (11:00)
[2016-07-18 11:02] LABS: BAND NEUTROPHILS % 5 % (0-6); EOSINOPHILS % 0 % (0-4); LYMPHOCYTES # 0.2 #; MONOCYTES # 0.4 #; MONOCYTES % 4 % (3-11); RBC MORPH NORMAL (NORMAL); SEGMENTED NEUTROPHILS % 89 % (51-67); TOTAL CELLS COUNTED 100
[2016-07-18 11:21] VITALS: BP 147/89
[2016-07-18] MEDS: FLUTICASONE/SALMETEROL HFA 115/21 MCG (ADVAIR) COMMON CANNISTER INH SCH ×2 (11:22→22:27)
[2016-07-18] MEDS: VANCOMYCIN 1,500 MG, VANCOMYCIN PHARMACY PROTOCOL 1 EACH in SODIUM CHLORIDE 250 ML, SOD... IV SCH (11:36)
[2016-07-18 15:45] VITALS: BP 148/88
[2016-07-18] MEDS: meTOproloL SUCCINATE 50 MG (TOPROL XL) TAB PO SCH (17:22)
[2016-07-18 19:53] VITALS: BP 166/96
[2016-07-18] MEDS: SODIUM CHLORIDE FLUSH 10 ML SYR IV PRN (20:25)
[2016-07-18] MEDS: hydrALAZINE 20 MG/ML (APRESOLINE) 1 ML VIAL IV PRN (20:25)
[2016-07-18] MEDS: SODIUM CHLORIDE 7% NEB SOLN 4 ML VIAL IH SCH (21:00)
[2016-07-18] MEDS ORDERED: cefTRIAXone SODIUM 1,000 MG in SODIUM CHLORIDE 50 ML IV SCH (21:00)
[2016-07-18] MEDS: ALBUTEROL 0.5% NEB SOLUTION 2.5 MG/0.5 ML VIAL INH SCH (21:00)
[2016-07-18] MEDS: LORazepam 2 MG/ML (ATIVAN) 1 ML VIAL IV PRN (23:03)
[2016-07-18 23:53] VITALS: BP 169/96
[2016-07-19 04:06] VITALS: BP 168/95
[2016-07-19] MEDS: ALBUTEROL/IPRATROPIUM 3MG-0.5MG/3ML (DUONEB) NEB VIAL INH SCH ×2 (04:37→09:50)
[2016-07-19] MEDS: PANTOPRAZOLE 40 MG (PROTONIX) TAB PO SCH (06:11)
[2016-07-19 07:50] VITALS: BP 160/93
[2016-07-19] MEDS: ACIDOPHILUS/LACTOBACILLUS SPOROGENES 1 TABLET PO SCH (08:26)
[2016-07-19] MEDS: predniSONE 20 MG (DELTASONE) TABLET PO SCH (08:27)
[2016-07-19] MEDS: PREGABALIN 75 MG PO SCH (08:27)
[2016-07-19] MEDS: SODIUM CHLORIDE FLUSH 3 ML SYR IV SCH (08:27)
[2016-07-19] MEDS: ALLOPURINOL 300 MG (ZYLOPRIM) TAB PO SCH (08:27)
[2016-07-19] MEDS: HYDROcodone/APAP 5 MG/325 MG (NORCO) TAB PO PRN (08:27)
[2016-07-19] MEDS: amLODIPine 2.5MG (NORVASC) TAB PO SCH (08:27)
[2016-07-19] MEDS: ENOXAPARIN 30 MG/0.3 ML (LOVENOX) SYR SC SCH (08:28)
[2016-07-19] MEDS: guaiFENesin ER 600 MG (MUCINEX) TAB PO SCH (08:28)
[2016-07-19] MEDS: ALBUTEROL 0.5% NEB SOLUTION 2.5 MG/0.5 ML VIAL INH SCH (09:00)
[2016-07-19] MEDS: SODIUM CHLORIDE 7% NEB SOLN 4 ML VIAL IH SCH (09:49)
[2016-07-19] MEDS: FLUTICASONE/SALMETEROL HFA 115/21 MCG (ADVAIR) COMMON CANNISTER INH SCH (09:50)
[2016-07-19 11:33] VITALS: BP 172/90
[2016-07-19] MEDS: SODIUM CHLORIDE FLUSH 10 ML SYR IV PRN (11:45)
[2016-07-19] MEDS: hydrALAZINE 20 MG/ML (APRESOLINE) 1 ML VIAL IV PRN (11:45)
[2016-07-19 12:16] VITALS: BP 145/87
[2016-07-19] MEDS: hydrOXYzine 25 MG (ATARAX) TABLET PO PRN (15:22)
== END 2016-07-19 15:31 | disposition swing bed (61) | DRG 871 ==
LOC: ED 09:51 → ICU 11:52 → MED/SURG 07-17 11:30
PROVIDERS: ADMIT Internal Medicine; ATTEND Internal Medicine
DX: A41.9 Sepsis, unspecified organism (principal); J96.00 Acute respiratory failure, unspecified whether with hypoxia or hypercapnia; J15.5 Pneumonia due to Escherichia coli; Z66 Do not resuscitate; N17.9 Acute kidney failure, unspecified; J44.0 Chronic obstructive pulmonary disease with (acute) lower respiratory infection; J44.1 Chronic obstructive pulmonary disease with (acute) exacerbation; R04.2 Hemoptysis; R65.20 Severe sepsis without septic shock; R19.7 Diarrhea, unspecified; G89.29 Other chronic pain; I10 Essential (primary) hypertension; Z87.891 Personal history of nicotine dependence
CPT/HCPCS: 36415; 51702; 71010; 71020; 78582; 80053; 80069; 80202; 81003; 81015; 82550; 82553; 82803; 83605; 83735; 83880; 84132; 84443; 84484; 85025; 85379; 85610; 86140; 87040; 87070; 87077; 87186; 87205; 87486; 87507; 87581; 87633; 87798; 93005; 93010; 94640; 94760; 96365; 96375; 99285

== ENCOUNTER 2016-07-15 11:52 | Inpatient (IN) | payer MEDICARE ==
[~2016-07-15] VITALS: Ht 175.3 cm; Wt 89.6 kg
--- NOTE | 2016-07-19 15:39 | NUR ---
Patient admitted to room 314 for swing bed. Resting in bed. Alert and oriented X3. Denies pain but reports mild SOA. 4L of 02 intact per nc. Conversing with guests. Call light in reach.
[2016-07-19] MEDS ORDERED: POLYETHYLENE GLYCOL 17 GM (MIRALAX) PACKET PO PRN (15:50)
[2016-07-19] MEDS ORDERED: MAGNESIUM HYDROXIDE 80MG/ML (MILK OF MAGNESIA) 30 ML UDC PO PRN (15:50)
[2016-07-19] MEDS ORDERED: ACETAMINOPHEN 325 MG TAB (TYLENOL) PO PRN (15:50)
[2016-07-19] MEDS ORDERED: ONDANSETRON 4 MG (ZOFRAN) ORAL DISSOLVE TAB PO PRN (15:50)
[2016-07-19] MEDS ORDERED: MAG HYDROX/AL HYDROX/SIMETH 200-200-20/5 ML (MAG-AL PLUS) 30 ML UDC PO PRN (15:50)
[2016-07-19] MEDS ORDERED: CALCIUM CARBONATE CHEWABLE 300 MG (TUMS) TABLET PO PRN (15:50)
[2016-07-19] MEDS ORDERED: ALBUTEROL 0.083% NEB SOLUTION 2.5 MG/3 ML VIAL INH PRN (15:50)
[2016-07-19] MEDS ORDERED: LORATADINE (CLARITIN) 10 MG TAB PO PRN (15:50)
[2016-07-19] MEDS ORDERED: DOCUSATE SODIUM 100 MG (COLACE) CAP PO PRN (15:50)
[2016-07-19] MEDS ORDERED: SODIUM CHLORIDE FLUSH 10 ML SYR IV PRN (15:50)
[2016-07-19] MEDS ORDERED: hydrALAZINE 20 MG/ML (APRESOLINE) 1 ML VIAL IV PRN (15:50)
[2016-07-19 15:54] VITALS: BP 152/90
[2016-07-19] MEDS: ALBUTEROL/IPRATROPIUM 3MG-0.5MG/3ML (DUONEB) NEB VIAL INH SCH ×2 (16:30→21:15)
[2016-07-19] MEDS: meTOproloL SUCCINATE 50 MG (TOPROL XL) TAB PO SCH (17:08)
[2016-07-19] MEDS: HYDROcodone/APAP 5 MG/325 MG (NORCO) TAB PO PRN (17:39)
--- NOTE | 2016-07-19 18:25 | NUR ---
Patient calls nurse to bedside with c/o SOA. Persistent cough noted. RT notified and at bedside. Patient reports to RT that he often chokes on liquid and food and that he had choked on a piece of meat at supper. Dr. Shelley notified and orders ST evaluation. Respirations even and mildly-labored at this time on 4L of 02 per nc. Will continue to monitor.
[2016-07-19] MEDS: PREGABALIN 75 MG PO SCH (20:06)
[2016-07-19] MEDS: guaiFENesin ER 600 MG (MUCINEX) TAB PO SCH (20:06)
[2016-07-19] MEDS: CEFDINIR 300 MG (OMNICEF) CAPSULE PO SCH (20:06)
[2016-07-19] MEDS: ALBUTEROL 0.5% NEB SOLUTION 2.5 MG/0.5 ML VIAL INH SCH (21:00)
[2016-07-19] MEDS ORDERED: FLUTICASONE/SALMETEROL HFA 115/21 MCG (ADVAIR) COMMON CANNISTER INH ONE (21:13)
[2016-07-19] MEDS: SODIUM CHLORIDE 7% NEB SOLN 4 ML VIAL IH SCH (21:14)
[2016-07-19] MEDS: FLUTICASONE/SALMETEROL HFA 115/21 MCG (ADVAIR) COMMON CANNISTER INH SCH (21:15)
--- NOTE | 2016-07-19 21:20 | NUR ---
Pt found lying in bed on 4 l/min NC, SPO2 92%, HR 102, RR 16 and non labored with clear BS before and after Duoneb with 7% NACL via SVN and 2p Advair 115/21 via Spacer. Mouth rinsed post Tx. Acapella X5 post Tx, no cough induced.
[2016-07-20] MEDS: ALBUTEROL/IPRATROPIUM 3MG-0.5MG/3ML (DUONEB) NEB VIAL INH SCH ×4 (02:27→19:15)
--- NOTE | 2016-07-20 02:31 | NUR ---
Pt found returning from the restroom on 4 l/min NC, SPO2 77% and he was visibly dyspneic. Pt got back to the edge of his bed and I coached him on breathing through his nose and slowing his breathing with emphasis on exhaling completely. His SPO2 recovered to 91% within three minutes. BS clear diminished throughout all lung estrella before and after Duoneb via SVN which was tolerated well.
[2016-07-20] MEDS: HYDROcodone/APAP 5 MG/325 MG (NORCO) TAB PO PRN ×3 (04:50→21:35)
[2016-07-20] MEDS: PANTOPRAZOLE 40 MG (PROTONIX) TAB PO SCH (06:04)
--- NOTE | 2016-07-20 06:30 | NUR ---
Patient rests in bed throughout night without needs. Some pain, [place] given per request. No needs at this time.
[2016-07-20] MEDS: FLUTICASONE/SALMETEROL HFA 115/21 MCG (ADVAIR) COMMON CANNISTER INH SCH ×2 (07:41→19:16)
--- NOTE | 2016-07-20 07:45 | NUR ---
Patient sitting at edge of bed upon shift assessment. Alert and oriented X3. Denies pain but reports SOA that is "no worse than usual". 4L of 02 intact per nc. Oxygen saturation 94%. Reparations even and mildly labored. Lung sounds diminished in BLL. Updated for plan of care for shift including swing bed routines and speech evaluation today. Call light in reach.
[2016-07-20 08:01] VITALS: BP 119/98
[2016-07-20 08:24] VITALS: BP 148/92
[2016-07-20] MEDS: CEFDINIR 300 MG (OMNICEF) CAPSULE PO SCH ×2 (08:24→21:01)
[2016-07-20] MEDS: guaiFENesin ER 600 MG (MUCINEX) TAB PO SCH ×2 (08:24→21:01)
[2016-07-20] MEDS: SODIUM CHLORIDE FLUSH 3 ML SYR IV SCH (08:24)
[2016-07-20] MEDS: ENOXAPARIN 30 MG/0.3 ML (LOVENOX) SYR SC SCH (08:24)
[2016-07-20] MEDS: PREGABALIN 75 MG PO SCH ×2 (08:24→21:01)
[2016-07-20] MEDS: ALLOPURINOL 300 MG (ZYLOPRIM) TAB PO SCH (08:24)
[2016-07-20] MEDS: amLODIPine 2.5MG (NORVASC) TAB PO SCH (08:24)
[2016-07-20] MEDS: ACIDOPHILUS/LACTOBACILLUS SPOROGENES 1 TABLET PO SCH (08:24)
--- NOTE | 2016-07-20 09:18 | NUR ---
Upon returning from shower, 20g IV in RAC leaking. Discontinued with catheter intact. No redness or swelling at insertion site.
[2016-07-20] MEDS: ALBUTEROL 0.5% NEB SOLUTION 2.5 MG/0.5 ML VIAL INH SCH ×2 (14:00→19:16)
[2016-07-20] MEDS: SODIUM CHLORIDE 7% NEB SOLN 4 ML VIAL IH SCH ×2 (14:01→19:15)
--- NOTE | 2016-07-20 14:13 | NUR ---
SpO2 94% on 4 lpm. BS clear, Decreased. Duoneb and 7% hypetonic saline given via MP.
[2016-07-20] MEDS: hydrOXYzine 25 MG (ATARAX) TABLET PO PRN (15:28)
[2016-07-20] MEDS: meTOproloL SUCCINATE 50 MG (TOPROL XL) TAB PO SCH (16:51)
--- NOTE | 2016-07-20 18:07 | NUR ---
Patient sitting up in recliner. Denies choking with supper. 4L of 02 intact per nc. Denies pain or distress at this time. PRN [place] was provided, however, at 1530 for c/o bilateral foot pain. Ambulates independently into bathroom. Call light in reach.
--- NOTE | 2016-07-20 19:21 | NUR ---
Pt found lying in bed on 4 l/min NC, SPO2. SPO2 95%, HR 81, RR 18 and non labored with clear BS pre and post Tx.
[2016-07-20 19:38] VITALS: BP 158/95
[2016-07-21] MEDS: ALBUTEROL/IPRATROPIUM 3MG-0.5MG/3ML (DUONEB) NEB VIAL INH SCH ×4 (01:02→19:46)
[2016-07-21] MEDS: PANTOPRAZOLE 40 MG (PROTONIX) TAB PO SCH (05:25)
[2016-07-21] MEDS: HYDROcodone/APAP 5 MG/325 MG (NORCO) TAB PO PRN ×3 (05:25→22:55)
[2016-07-21] MEDS: SODIUM CHLORIDE 7% NEB SOLN 4 ML VIAL IH SCH ×2 (07:29→19:46)
[2016-07-21] MEDS: FLUTICASONE/SALMETEROL HFA 115/21 MCG (ADVAIR) COMMON CANNISTER INH SCH ×2 (07:35→19:46)
[2016-07-21 07:58] VITALS: BP 114/73
[2016-07-21] MEDS: CEFDINIR 300 MG (OMNICEF) CAPSULE PO SCH ×2 (08:59→20:37)
[2016-07-21] MEDS: ACIDOPHILUS/LACTOBACILLUS SPOROGENES 1 TABLET PO SCH (08:59)
[2016-07-21] MEDS: PREGABALIN 75 MG PO SCH ×2 (08:59→20:37)
[2016-07-21] MEDS: ALLOPURINOL 300 MG (ZYLOPRIM) TAB PO SCH (08:59)
[2016-07-21] MEDS: ENOXAPARIN 30 MG/0.3 ML (LOVENOX) SYR SC SCH (09:00)
[2016-07-21] MEDS: amLODIPine 2.5MG (NORVASC) TAB PO SCH (09:00)
[2016-07-21] MEDS: guaiFENesin ER 600 MG (MUCINEX) TAB PO SCH ×2 (09:00→20:38)
[2016-07-21] MEDS: SODIUM CHLORIDE FLUSH 3 ML SYR IV SCH (09:08)
[2016-07-21] MEDS ORDERED: ALBUTEROL 0.5% NEB SOLUTION 2.5 MG/0.5 ML VIAL INH PRN (11:00)
[2016-07-21] MEDS: ALBUTEROL 0.5% NEB SOLUTION 2.5 MG/0.5 ML VIAL INH SCH (13:00)
[2016-07-21] MEDS: meTOproloL SUCCINATE 50 MG (TOPROL XL) TAB PO SCH (16:54)
--- NOTE | 2016-07-21 17:15 | NUR ---
Pt found on 2L NC, spot checked sats: 94%. RT notified, titrated to 1L. Will continue to monitor.
--- NOTE | 2016-07-21 18:23 | NUR ---
Pt sitting up in chair. Skin warm, dry, intact. Resprs nonlabored, even on 1L NC. Will call for assistance. Denies needs.
--- NOTE | 2016-07-21 19:51 | NUR ---
Pt found sitting in his chair, SPO2 90%, HR 90, RR 16 and non labored at this time. BS clear and diminished before and after Duoneb with 3cc 7% NACL via SVN and 2 p Advair 115/21 via Spacer. Mouth rinsed post Tx.
[2016-07-21 20:32] VITALS: BP 109/66
--- NOTE | 2016-07-21 20:40 | NUR ---
Pt. takes PO meds without difficulty; resting in recliner; watching tv; resp are even and unlabored on 1L of O2 via NC. Pt. smiles and is very conversational and pleasant; denies discomfort minus chronic bilateral foot pain. Pt. would like a pain med when next due for pain control of chronic condition.
--- NOTE | 2016-07-21 22:55 | NUR ---
[place] (1) PO given to pt. for chronic pain in bilateral feet rated "8". Pt. now in bed; watching tv; H2O replenished; call light by left hand.
[2016-07-22] MEDS: ALBUTEROL/IPRATROPIUM 3MG-0.5MG/3ML (DUONEB) NEB VIAL INH SCH ×4 (01:07→19:37)
--- NOTE | 2016-07-22 01:09 | NUR ---
Pt found sleeping in bed on 1 l/min NC, SPO2 91%, HR 77, RR 16 and non labored. BS clear and diminished before and after Duoneb via SVN which was tolerated well.
[2016-07-22] MEDS: hydrOXYzine 25 MG (ATARAX) TABLET PO PRN ×2 (02:09→20:23)
--- NOTE | 2016-07-22 02:10 | NUR ---
Atarax 25 mg PO given for pt. report of itching; "I've had shingles for a year-back of my head and behind my left ear".
[2016-07-22] MEDS: PANTOPRAZOLE 40 MG (PROTONIX) TAB PO SCH (06:06)
[2016-07-22] MEDS: HYDROcodone/APAP 5 MG/325 MG (NORCO) TAB PO PRN ×3 (06:07→20:22)
--- NOTE | 2016-07-22 06:09 | NUR ---
[place] (1) PO given for pain in feet rated "8". Pt. has slept in short intervals throughout the shift; "I do this at home, too". O2 at 1L via NC; resp are even and unlabored; H2O and call light within reach.
[2016-07-22] MEDS: SODIUM CHLORIDE 7% NEB SOLN 4 ML VIAL IH SCH ×2 (07:12→19:37)
[2016-07-22] MEDS: FLUTICASONE/SALMETEROL HFA 115/21 MCG (ADVAIR) COMMON CANNISTER INH SCH ×2 (07:15→19:37)
[2016-07-22 07:44] VITALS: BP 97/60
[2016-07-22] MEDS: ACIDOPHILUS/LACTOBACILLUS SPOROGENES 1 TABLET PO SCH (08:50)
[2016-07-22] MEDS: guaiFENesin ER 600 MG (MUCINEX) TAB PO SCH ×2 (08:50→20:22)
[2016-07-22] MEDS: PREGABALIN 75 MG PO SCH ×2 (08:51→20:22)
[2016-07-22] MEDS: CEFDINIR 300 MG (OMNICEF) CAPSULE PO SCH ×2 (08:51→20:22)
[2016-07-22] MEDS: ALLOPURINOL 300 MG (ZYLOPRIM) TAB PO SCH (08:52)
[2016-07-22] MEDS: amLODIPine 2.5MG (NORVASC) TAB PO SCH (08:52)
[2016-07-22] MEDS: SODIUM CHLORIDE FLUSH 3 ML SYR IV SCH (08:53)
[2016-07-22] MEDS: ENOXAPARIN 30 MG/0.3 ML (LOVENOX) SYR SC SCH (08:53)
--- NOTE | 2016-07-22 09:40 | NUR ---
Pt Takes am meds without difficulty. Denies pain/discomfort. Remains on 1L nc. Has already worked with OT this AM.
--- NOTE | 2016-07-22 14:05 | NUR ---
Pt given [place] 5mg PO at his request for c/o 12/24 bilat feet pain.
--- NOTE | 2016-07-22 14:36 | NUR ---
Nutrition Follow Up: Patient has not been eating well; although his food intake appears to be adequate at 100%, he has been requesting mostly only soup, fruit and Jello for meals with limited protein. He is working with PT/OT but fatigues easily and sats drop significantly. Noted MBS showed no aspiration, so he is not on an altered texture diet. Weight today: 200.2#/91 kg--this is down 4.6# in the past 6 days Labs: N/A on swing bed 1. Added Ensure to supper menu tonight to see if pt. will take it. We will need to emphasize protein in a greater quantity with his meals. 2. If pt. refuses to eat more, will supplement with Benecalorie in soft foods such as mashed potatoes and cream of wheat. 3. Offer snacks between meals with an emphasis on protein sources--will provide homemade protein shakes if pt. prefers the taste over Ensure.
[2016-07-22] MEDS: meTOproloL SUCCINATE 50 MG (TOPROL XL) TAB PO SCH (17:40)
--- NOTE | 2016-07-22 18:39 | NUR ---
Pt remains on 1L nc. Finished eating supper meal. Has been ambulating in room indep. Playing cards with
--- NOTE | 2016-07-22 19:42 | NUR ---
Pt found sitting in his chair on 1 l/min NC, SPO2 91%, HR 98, RR 18 and mildly dyspneic with clear BS before and after 2 p Advair 115/21 via Spacer and Duoneb with 3cc 7% NACL tobias SVN, both tolerated well. Acapella post Tx x5 and mouth rinsed.
--- NOTE | 2016-07-22 20:00 | NUR ---
Resting in bed. Oxygen on at 1 liter per NC. Respirations even and non-labored. Ambulates to the bathroom without difficulty. Voids without difficulty. Urine annette. Pleasant and cooperative with cares.
[2016-07-22 20:22] VITALS: BP 105/62
--- NOTE | 2016-07-22 20:23 | NUR ---
[place] 5mg and Atarax administered per request for foot pain and itching. Ready for sleep. Call light within reach.
[2016-07-23] MEDS: ALBUTEROL/IPRATROPIUM 3MG-0.5MG/3ML (DUONEB) NEB VIAL INH SCH ×4 (01:18→19:41)
--- NOTE | 2016-07-23 01:20 | NUR ---
Pt found sleeping in bed on 1 l/min NC, SPO2 90%, HR 88, RR 16 and non labored at this time. BS clear before and after Duoneb via SVN.
--- NOTE | 2016-07-23 05:58 | NUR ---
Patient rested at long intervals tonight. Call when needs his urinal emptied. Urine clear annette. Takes fluids well. Denies need for pain medication this morning. Oxygen remains on at 1 liter per NC. Cooperative with cares. Call light within reach.
[2016-07-23] MEDS: PANTOPRAZOLE 40 MG (PROTONIX) TAB PO SCH (06:37)
[2016-07-23] MEDS: SODIUM CHLORIDE 7% NEB SOLN 4 ML VIAL IH SCH (07:19)
[2016-07-23] MEDS: FLUTICASONE/SALMETEROL HFA 115/21 MCG (ADVAIR) COMMON CANNISTER INH SCH ×2 (07:19→19:41)
--- NOTE | 2016-07-23 07:21 | NUR ---
Pt is awake and alert, laying in bed with head elevated, tolerated tx well, strong NPC, pt on 1L SPO2 95%
[2016-07-23 07:45] VITALS: BP 110/70
--- NOTE | 2016-07-23 07:50 | NUR ---
Pt resting in bed, watching tv. Remains on 1L nc. Resp rate even, nonlab. Rates chronic bilat foot pain 12/24- requests alex-will give with AM meds now
[2016-07-23] MEDS: guaiFENesin ER 600 MG (MUCINEX) TAB PO SCH ×2 (08:09→20:57)
[2016-07-23] MEDS: hydrOXYzine 25 MG (ATARAX) TABLET PO PRN ×2 (08:09→16:45)
[2016-07-23] MEDS: HYDROcodone/APAP 5 MG/325 MG (NORCO) TAB PO PRN ×2 (08:09→16:46)
[2016-07-23] MEDS: ENOXAPARIN 30 MG/0.3 ML (LOVENOX) SYR SC SCH (08:09)
[2016-07-23] MEDS: ACIDOPHILUS/LACTOBACILLUS SPOROGENES 1 TABLET PO SCH (08:09)
[2016-07-23] MEDS: ALLOPURINOL 300 MG (ZYLOPRIM) TAB PO SCH (08:09)
[2016-07-23] MEDS: amLODIPine 2.5MG (NORVASC) TAB PO SCH (08:09)
[2016-07-23] MEDS: CEFDINIR 300 MG (OMNICEF) CAPSULE PO SCH ×2 (08:10→20:57)
[2016-07-23] MEDS: SODIUM CHLORIDE FLUSH 3 ML SYR IV SCH (08:10)
[2016-07-23] MEDS: PREGABALIN 75 MG PO SCH ×2 (08:10→20:57)
--- NOTE | 2016-07-23 08:13 | NUR ---
[place] and Atarax given as requested. Pt c/o itching behind left ear and left side of head from history of shingles. Addendum: 07/23/16 at 0814 by Corina Bhatti RN at bedside.
--- NOTE | 2016-07-23 08:32 | NUR ---
Pt ambulating halls with Miguel Al PT using walker and gait belt. Remains on RA. Addendum: 07/23/16 at 0839 by Corina Bhatti RN disregard above note- wrong patient.
--- NOTE | 2016-07-23 08:39 | NUR ---
Pt ambulated to shower with LAW SECRETARY using walker. Remains on 1l nc.
--- NOTE | 2016-07-23 08:57 | NUR ---
Raghu Gaona APRN at bedside.
--- NOTE | 2016-07-23 09:05 | NUR ---
Raghu Gaona tells this nurse that she put pt on RA at 0900- and to recheck o2 sats at 0915.
--- NOTE | 2016-07-23 09:24 | NUR ---
At 0915 pt ambulating halls with Ingrid MELVIN on RA sats dropped to 79%. Pt taken to room for rest break- Pt refuses to wear O2 nc- states "let me see if I can get it up myself." After 3minutes of rest O2 sats increased to 88-91% RA with deep breathing. After 5 minutes of rest, O2 sats recovered to 94% RA with deep breathing exercises. Ingrid MELVIN witnessed this event and Raghu Gaona notified. During this, was trying to talk patient into putting o2 back on to recover, but pt did make leave hospital. call light within reach.
--- NOTE | 2016-07-23 10:46 | NUR ---
MULTIDISCIPLINARY MTG/DR. LUDWIG: Pt. has been stubborn this morning. Pt. started off on 1L oxygen and tried to wean. OT was walking Pt. and his sats dropped to 79%. Pt. refused to put on oxygen. Pt. sat and within three minutes his sats were at 88-91%. Pt. fully recovered after five minutes. Pt. is adamant about going home. Pt. is independent in his room and showered himself today. Pt. does not have home oxygen. Dietitian is concerned Pt. is not eating the correct things and needs more protein. Dietitian will visit with Pt. Will try to encourage Pt. to continue with skilled care. If Pt. decides to discharge will need to set up home oxygen.
--- NOTE | 2016-07-23 11:25 | NUR ---
Dr. Tellez at bedside discussing COPD, pneumonia, plan of care, oxygen use/requirements at length.
--- NOTE | 2016-07-23 13:17 | NUR ---
Pt is sitting in recliner, tolerated tx well, pt was using his incentive spirometer when upon my arrival. Pt is on room air, SPO2 92%. Strong NPC
--- NOTE | 2016-07-23 15:40 | NUR ---
Patient up walking in [place] without O2. Visited with patient regarding need for O2 with ANY and EVERY activity. Educated that low O2 saturation can damage organs and that we have demonstrated here that he has a need for the supplemental O2. See note on outcomes.
[2016-07-23] MEDS: meTOproloL SUCCINATE 50 MG (TOPROL XL) TAB PO SCH (16:40)
--- NOTE | 2016-07-23 16:46 | NUR ---
Atarax given for c/o itching. States it has worked well. [place] for foot pain rated 8/10.
--- NOTE | 2016-07-23 18:40 | NUR ---
Foot pain has lessened to 6/10 which patient states is good for him. Has had no other complaints. States no "itching" at this time. Patient is looking forward to dismissal tomorrow. Needs reinforcement of compliance with home O2.
[2016-07-23 19:39] VITALS: BP 120/78
--- NOTE | 2016-07-23 19:46 | NUR ---
Pt found sitting in his chair on RA, SPO2 90%, HR 86, RR 16 and non labored at this time. Duoneb given via SVN and 2P Advair 115/21 given via Spacer tolerated well with clear BS before and after Tx. JITENDRA from Dr Tellez to perform overnight oximetry on RA. I will place monitor on Pt closer to his bedtime.
--- NOTE | 2016-07-23 19:46 | NUR ---
Pt up in chair at shift exchange. Denies needs or complaints. On RA at this time.
--- NOTE | 2016-07-23 21:00 | NUR ---
Pt placed on Overnight oximetry, SPO2 90% on RA
[2016-07-24] MEDS: ALBUTEROL/IPRATROPIUM 3MG-0.5MG/3ML (DUONEB) NEB VIAL INH SCH ×2 (01:01→07:39)
--- NOTE | 2016-07-24 01:06 | NUR ---
Pt found sleeping on RA, SPO2 79%, HR 68, RR 14 and non labored. Placed on 1 l/min NC, SPO2 recovered to 90% within 3-4 minutes. Duoneb given via SVN tolerated well with clear BS before and after Tx. Pt left on 1 l/min NC.
[2016-07-24] MEDS: hydrOXYzine 25 MG (ATARAX) TABLET PO PRN ×2 (01:39→09:37)
[2016-07-24] MEDS: HYDROcodone/APAP 5 MG/325 MG (NORCO) TAB PO PRN ×2 (01:39→09:38)
--- NOTE | 2016-07-24 05:37 | NUR ---
Overnight oximetry taken off patient, SPO2 92% on 1 l/min NC. Report on chart.
[2016-07-24] MEDS: PANTOPRAZOLE 40 MG (PROTONIX) TAB PO SCH (06:10)
--- NOTE | 2016-07-24 06:14 | NUR ---
Uneventful hourly shift manager. Pt on 1L oxygen per nc most of night; see RT notes. Denies needs this morning.
--- NOTE | 2016-07-24 07:20 | NUR ---
Patient sitting up in recliner upon shift assessment watching television. Denies pain, SOA, or other distress. Respirations even and non-labored on 1L of 02 per nc. Lung sounds CTAB. HR RRR. Updated on plan of care for shift. Call light in reach.
[2016-07-24 07:37] VITALS: BP 129/76
[2016-07-24] MEDS: FLUTICASONE/SALMETEROL HFA 115/21 MCG (ADVAIR) COMMON CANNISTER INH SCH (07:42)
--- NOTE | 2016-07-24 07:44 | NUR ---
92% on 1L nc. O2 removed, BS clear.
[2016-07-24] MEDS: ACIDOPHILUS/LACTOBACILLUS SPOROGENES 1 TABLET PO SCH (08:12)
[2016-07-24] MEDS: PREGABALIN 75 MG PO SCH (08:12)
[2016-07-24] MEDS: SODIUM CHLORIDE FLUSH 3 ML SYR IV SCH (08:12)
[2016-07-24] MEDS: amLODIPine 2.5MG (NORVASC) TAB PO SCH (08:13)
[2016-07-24] MEDS: ALLOPURINOL 300 MG (ZYLOPRIM) TAB PO SCH (08:13)
[2016-07-24] MEDS: guaiFENesin ER 600 MG (MUCINEX) TAB PO SCH (08:13)
[2016-07-24] MEDS: CEFDINIR 300 MG (OMNICEF) CAPSULE PO SCH (08:13)
[2016-07-24] MEDS: ENOXAPARIN 30 MG/0.3 ML (LOVENOX) SYR SC SCH (08:13)
--- NOTE | 2016-07-24 11:52 | NUR ---
Discharge order received. NO IV access noted. Instructions provided with verbal and written instructions expressed. Health equip here with portable 02 tank.
--- NOTE | 2016-07-24 12:53 | NUR ---
Patient dismissed via wheelchair to private car accompanied by RN. 1L of 02 intact per nc. Denies pain or SOA. No further needs.
== END 2016-07-24 12:45 | disposition home or self-care (01) | DRG 189 ==
LOC: MED/SURG 11:52 → UNDOADMIN 11:52 → MED/SURG 07-19 15:31 → UNDOADMIN 07-19 15:31
PROVIDERS: ADMIT Internal Medicine; ATTEND Internal Medicine
DX: J96.00 Acute respiratory failure, unspecified whether with hypoxia or hypercapnia (principal); J15.5 Pneumonia due to Escherichia coli; J44.0 Chronic obstructive pulmonary disease with (acute) lower respiratory infection; J44.1 Chronic obstructive pulmonary disease with (acute) exacerbation; N17.9 Acute kidney failure, unspecified; Z66 Do not resuscitate; T17.990A Other foreign object in respiratory tract, part unspecified in causing asphyxiation, initial encounter; I10 Essential (primary) hypertension; R19.7 Diarrhea, unspecified; G89.29 Other chronic pain; X58.XXXA Exposure to other specified factors, initial encounter
CPT/HCPCS: 74230; 94640; 94669; 94760; 94762

== ENCOUNTER → 2016-10-09 | Outpatient (CLI) | payer MEDICARE ==
[~2016-10-09] MED LIST: AC325T PO; ACLI400A2 IH; ADV250-14 INH; ALB0.5V INH; ALBU2.5V4 INH; ALLO300T2 PO; AML2.5T PO; AMOX1TAB12 PO; ASPI-9 PO; ASPI325T4 PO; CEFD300C PO; CLON1TAB27 PO; CLON1TAB3 PO; DOXY-182 PO; FAMO-107 PO; FLUT1DIS3 IH; FLUT1DIS4 IH; FLUT1DIS4 INH; GBPN400C PO; HYDR-3702 PO; INDA1.25 PO; IPRA3AMP11 INH; LORA-714 PO; LORA10TA7 PO; LVF500T GT; METO-272 PO; MULT-954 PO; NEBI5TAB8 PO; NFLYR75C PO; OXYGEN; PANT20TA24 PO; PANT40TA3 PO; PRD20T PO; PRED10TA22 PO; PRED20TA PO; SMV10T PO; SMV20T PO; SPRN25T PO; TIOT18CA INH; TOBR28CA IH; VALA1000 PO; ZINC30TA2 PO
== END ==
LOC: LAB 10:26
PROVIDERS: ATTEND Family Medicine
DX: Z01.818 Encounter for other preprocedural examination (principal)
CPT/HCPCS: 36415; 82565; 84520

== ENCOUNTER → 2016-10-13 | Outpatient (CLI) | payer MEDICARE ==
--- NOTE | 2016-10-13 10:36 | Diagnostic Imaging Report ---
PROCEDURE: CT chest with contrast only. TECHNIQUE: Multiple contiguous axial images were obtained through the chest after administration of intravenous contrast. INDICATION: Followup pneumonia. COMPARISON: Comparison with 08/29/2016. FINDINGS: The lungs are well-aerated. There is minimal residual infiltrate in the left lung base when compared with previous exam. Mild atelectasis and/or infiltrate remaining in the lateral right costophrenic angle. Two pulmonary nodules noted in the right middle lobe largest measuring 10 mm. Smaller nodule measuring 6 mm. These are not calcified. There is good opacification of the aorta. Aorta is densely calcified with no evidence of aneurysm or dissection. Coronary arteries are densely calcified. Pulmonary arteries appear normal. No mediastinal or hilar adenopathy of pathologic size. There is no pleural effusion or pericardial effusion. No mediastinal or hilar adenopathy. The upper abdomen appears normal. IMPRESSION: 1. Two pulmonary nodules right middle lobe largest measuring 10 mm. These are not calcified. Would recommend 3-6 month followup to confirm stability depending on patient's clinical risk. 2. There has been near complete clearing of the bilateral lower lobe infiltrate since previous study. 3. Diffuse atherosclerotic disease with no evidence of aneurysm or dissection. Dictated by: Dictated on workstation # [id number]
== END ==
LOC: RAD 09:40
PROVIDERS: ATTEND Family Medicine
DX: J15.9 Unspecified bacterial pneumonia (principal); R91.1 Solitary pulmonary nodule
CPT/HCPCS: 71260; Q9967